=== PATIENT | female | born 1955 | race Caucasian/White ===

== ENCOUNTER 2024-07-22 06:44 | Emergency (ER) | payer MEDICARE, SELFPAY ==
[2024-07-22 06:49] VITALS: BP 152/98
[2024-07-22 07:15] VITALS: BMI 19.5
--- NOTE | 2024-07-22 07:26 | ED.GENMED ---
History of Present Illness
General
Chief Complaint: DVT/Possible Blood Clot
Time Seen by Provider: 07/22/24 07:08
History of Present Illness
History of Present Illness:
69 yo female with history of prior provoked PE, no longer on anticoagulants, presents to the emergency department for evaluation of redness and discomfort to the right medial knee beginning yesterday. Feels as though she may have by an insect while
in her basement. She is concerned due to prior history of DVT. Denies any leg swelling or fevers.
Review of Systems
Review of Systems
Allergies reviewed?: Yes
All Other Systems: ROS reviewed and negative except as documented in HPI and ROS
Phy Exam
Physical Exam
Physical Exam:
GEN: Well appearing, NAD, WDWN
HEENT: Oral mucosa moist, no scleral icterus
Cardiac: Regular rate
Lung: No respiratory distress, no tachypnea
MSK: No gross deformity or injuries. Palpable thready venous cord with surrounding erythema to the right medial knee correlating with saphenous vein, likely a phlebitis
Skin: Good color, no pallor or jaundice, no rashes
Neuro: AO x3, moves all extremities freely
Psych: Calm, cooperative
Course
Vital Signs
Initial and Last Documented VS:
Initial Vital Signs
Temp Pulse Resp BP Pulse Ox
98.3 F 105 18 152/98 100
07/22/24 06:49 07/22/24 06:49 07/22/24 06:49 07/22/24 06:49 07/22/24 06:49
Last Documented Vital Signs
Temp Pulse Resp BP Pulse Ox
98.3 F 105 18 152/98 100
07/22/24 06:49 07/22/24 06:49 07/22/24 06:49 07/22/24 06:49 07/22/24 06:49
MDM/Problems Addressed
MDM/Problems Addressed:
There is no lower extremity edema to suggest DVT. Certainly could be localized cellulitis over the palpable venous cords suggest that this is likely superficial phlebitis on ongoing leg trauma. Recommend full dose aspirin, antibiotics prescribed
should symptoms progress
*Critical Care Note
Total Time (30-74mins, 75-104mins- exclusive of procedures): Not Applicable
ED Attending Note
-
Portions of this chart may have been created with voice recognition software.� Occasional wrong word or��sound alike� substitutions may have occurred due to the inherent limitations of voice recognition software.
Discharge Plan
Departure
Patient Disposition: Home (Routine Discharge)
Date of Disposition: 07/22/24
Time of Disposition: :27
Patient with high blood pressure during this ER visit?: No
Discharge Problem:
Superficial thrombophlebitis of right leg
Instructions: Superficial vein phlebitis and thrombosis
Prescriptions:
New
cephalexin 500 mg capsule
500 mg PO Q8H 7 Days Qty: 21 0RF
Activity Restrictions/Additional Instructions:
325mg aspirin once daily for 10-14 days
Warm compresses 3 times daily
Antibiotics prescribed should redness increase and not follow a linear pattern along the vein in your leg
Interventions
Interventions:
*Risk Screen - Suicide Last Done: 07/22/24 07:16
*General Assessment Last Done: 07/22/24 07:16
*Neglect/Abuse Screening Last Done: 07/22/24 07:16
ED- Fall Risk Assessment Last Done: 07/22/24 07:49
*ED COVID-19 Vaccine History Last Done: 07/22/24 07:16
*Nursing Disposition Last Done: 07/22/24 07:49
ED- Cardiac Assessment Last Done: 07/22/24 07:16
ED- Pulmonary Assessment Last Done: 07/22/24 07:16
ED-Peripheral Vascular Assessment Last Done: 07/22/24 07:16
ED-Skin Assessment Last Done: 07/22/24 07:16
Discharge Date and Time
Discharge Date/Time: 07/22/24 07:51
Print Language: EQUATORIAL GUINEAN
== END 2024-07-22 07:51 | disposition home or self-care (01) ==
LOC: EMR 06:44
PROVIDERS: EMERGENCY PHYSICIAN Emergency Medicine
DX: I80.01 Phlebitis and thrombophlebitis of superficial vessels of right lower extremity (principal); M25.561 Pain in right knee; L53.9 Erythematous condition, unspecified; Z86.711 Personal history of pulmonary embolism; Z86.718 Personal history of other venous thrombosis and embolism
CPT/HCPCS: 99283

== ENCOUNTER → 2024-08-08 13:37 | Outpatient (REF) | payer MEDICARE, SELFPAY | LOC: RAD 13:37 | DX: Z86.718 Personal history of other venous thrombosis and embolism (principal); Z86.711 Personal history of pulmonary embolism; M79.604 Pain in right leg | CPT/HCPCS: 93971 ==

== ENCOUNTER 2024-08-10 15:41 | Emergency (ER) | payer MEDICARE, SELFPAY ==
[2024-08-10 15:47] VITALS: BP 143/94
--- NOTE | 2024-08-10 16:24 | ED.SKININJ ---
HPI-Injury
General
Chief Complaint: Bite
Source: patient
Exam Limitations: none
Time Seen by Provider: 08/10/24 16:11
History of Present Illness-Injury
Is this injury a work related problem?: No
Initial Injury comments:
See MDM
Past History
Past History
ED Past Medical History: Other (PE)
ED Past Surgical History:
Social History
Tobacco: Non-smoker
Alcohol: None
Phy Exam
Physical Exam
Physical Exam:
See MDM
Course
Orders/Labs/Results
Orders:
Orders
08/10/24 16:19
Tetanus/Diphth/Acelpertussis [Adacel] 0.5 ml IM .ONCE ONE
Vital Signs
Initial and Last Documented VS:
Initial Vital Signs
Temp Pulse Resp BP Pulse Ox
98.2 F 93 16 143/94 99
08/10/24 15:47 08/10/24 15:47 08/10/24 15:47 08/10/24 15:47 08/10/24 15:47
Last Documented Vital Signs
Temp Pulse Resp BP Pulse Ox
98.2 F 93 16 143/94 99
08/10/24 15:47 08/10/24 15:47 08/10/24 15:47 08/10/24 15:47 08/10/24 15:47
MDM/Problems Addressed
Differential Diagnosis Includes:
HPI and MDM Narrative:
69-year-old female presenting for evaluation of a dog bite. She was playing with her 8-week puppy and the sharp puppy tooth nicked her left lower lip. She is unsure about her last tetanus shot. On exam, there is a very superficial subcentimeter
laceration to left lower lip that does not involve the vermilion border. Based on this, I discussed that there is no real need to suture or glue. Patient agrees. Will give tetanus shot. Given the superficial nature on the face and the fact that
they already washed out, discussed low concern for infection
Physical exam
General: Well appearing and non-toxic
HEENT: protecting airway
Neck: appears supple
CV: No evidence of cyanosis
Resp: No accessory muscle use
Abd: Non-distended
Extremities: No deformities
Neuro: alert
Psych: Normal affect
Skin: Subcentimeter superficial laceration to left lower lip does not involve vermilion border
Problems Addressed including Acute and Chronic Conditions affecting care:
1. Lip laceration
Acuity: acute
Prognosis: stable
Details: Discussed healing on its own
Differential Diagnosis (but not limited to): Lip laceration, right
Drug therapy (if applicable): OTC meds, please see d/c instruction regarding Rx drugs
Amount and/or Complexity of Data Reviewed
Clinical info obtained from: Patient
External data reviewed: N/A
Labs I independently reviewed (but not limited to): N/A
Radiology: N/A
Pulse Ox: not hypoxic
EKG independently reviewed: N/A
Search Lead: N/A
Critical Care: N/A
Risk of Complication:
Social Determinants of health: Good social support
Discussed with other providers: N/A
Escalation of Care includes Admit/Obs: After being observed in the Emergency Department, pt stable for discharge.
Occasional wrong word or 'sound a like' substitutions may have occurred due to the inherent limitations of voice recognition software. Read the chart carefully and recognize, using context, where substitutions have occurred.
*Critical Care Note
Total Time (30-74mins, 75-104mins- exclusive of procedures): Not Applicable
ED Attending Note
-
Portions of this chart may have been created with voice recognition software.� Occasional wrong word or��sound alike� substitutions may have occurred due to the inherent limitations of voice recognition software.
Discharge Plan
Departure
Patient Disposition: Home (Routine Discharge)
Date of Disposition: 08/10/24
Time of Disposition: 16:24
Patient with high blood pressure during this ER visit?: Yes
Discharge Problem:
Dog bite
Instructions: Animal Bites (DC)
Prescriptions:
No Action
cephalexin 500 mg capsule
500 mg PO Q8H 7 Days Qty: 21 0RF
Referrals:
UNKNOWN - PT DOES,NOT KNOW [Family Provider] -
Activity Restrictions/Additional Instructions:
Please return for any worsening symptoms.
You may return at any time if you have further concerns.
Please follow up with your doctor at the first available appointment, preferably this week.
Thank you for choosing [facility].
Interventions
Interventions:
ED-Skin Assessment Last Done: 08/10/24 15:58
Discharge Date and Time
Print Language: ROMANIAN
[2024-08-10] MEDS: ADACEL 0.5 ML IM (16:28)
== END 2024-08-10 16:35 | disposition home or self-care (01) ==
LOC: EMR 15:41
PROVIDERS: EMERGENCY PHYSICIAN Student in an Organized Health Care Education/Training Program
DX: S01.511A Laceration without foreign body of lip, initial encounter (principal); W54.0XXA Bitten by dog, initial encounter; Z23 Encounter for immunization
CPT/HCPCS: 99282; 90471; 90715

== ENCOUNTER → 2024-08-14 06:47 | Outpatient (REF) | payer MEDICARE, SELFPAY ==
[2024-08-14 08:09] LABS: % Basophils 0.7 % (0-2); % Eosinophils 2.4 % (0-6); % Lymphocytes 35.6 % (20.5-51.1); % Monocytes 6.5 % (1.7-9.3); % Neutrophils 54.8 % (42.2-75.2); Absolute Eosinophils 0.1 10^3/uL (0-0.7); Absolute Lymphocytes 1.5 10^3/uL (1.2-3.4); Absolute Monocytes 0.3 10^3/uL (0.1-0.6); Absolute Neutrophils 2.3 10^3/uL (1.4-6.5); Hematocrit 42.6 % (37.0-47.0); Hemoglobin 14.3 g/dL (12.0-16.0); Mean Corp Hgb Conc. 33.6 g/dL (33.0-37.0); Mean Corpuscular Hgb 31.4 pg (27.0-31.0); Mean Corpuscular Volume 93.4 fL (81.0-99.0); Mean Platelet Volume 9.1 fL (7.4-10.4); Nucleated Red Blood Cells % 0 %; Platelet Count 409 10^3/uL (130-400); Red Blood Cell Count 4.56 10^6/uL (4.20-5.40); Red Cell Dist. Width 13.1 % (11.5-14.5); White Blood Cell Count 4.2 10^3/uL (4.8-10.8)
[2024-08-14 08:41] LABS: ALT (SGPT) 19 U/L (0-35); AST (SGOT) 29 U/L (14-36); Albumin 4.5 g/dl (3.5-5.0); Alkaline Phosphatase 50 U/L (38-126); Blood Urea Nitrogen 21 mg/dl (7-17); Calcium 10.1 mg/dl (8.4-10.2); Carbon Dioxide 31 mmol/L (22-30); Chloride 104 mmol/L (98-107); Glucose 104 mg/dl (70-99); HDL Cholesterol 51 mg/dl; LDL Cholesterol, Calculated 115 mg/dl; Potassium 5.3 mmol/L (3.5-5.1); Sodium 145 mmol/L (135-145); Total Bilirubin 0.5 mg/dl (0.2-1.3); Total Cholesterol 180 mg/dl (50-199); Total Protein 6.8 g/dl (6.3-8.2); Triglyceride 72 mg/dl (10-149); Very Low Density Lipoprotein 14 mg/dl (0-30); eGFR > 60.00
[2024-08-14 09:04] LABS: TSH Reflex To Free T4 1.53 uIU/ml (0.47-4.68)
== END ==
LOC: REG 06:47
DX: Z13.0 Encounter for screening for diseases of the blood and blood-forming organs and certain disorders involving the immune mechanism (principal); Z13.220 Encounter for screening for lipoid disorders; Z13.29 Encounter for screening for other suspected endocrine disorder; I80.01 Phlebitis and thrombophlebitis of superficial vessels of right lower extremity
CPT/HCPCS: 36415; 80053; 80061; 84443; 85025

== ENCOUNTER → 2024-08-16 09:36 | Outpatient (REF) | payer MEDICARE, SELFPAY ==
[2024-08-16 11:01] LABS: % Eosinophils 0.8 % (0-6); % Immature Granulocytes 0.3 % (0-0.5); % Lymphocytes 35.1 % (20.5-51.1); % Monocytes 7.5 % (1.7-9.3); % Neutrophils 55.3 % (42.2-75.2); Absolute Lymphocytes 1.4 10^3/uL (1.2-3.4); Absolute Monocytes 0.3 10^3/uL (0.1-0.6); Absolute Neutrophils 2.2 10^3/uL (1.4-6.5); Hematocrit 41.4 % (37.0-47.0); Hemoglobin 14.1 g/dL (12.0-16.0); Mean Corp Hgb Conc. 34.1 g/dL (33.0-37.0); Mean Corpuscular Hgb 32.3 pg (27.0-31.0); Mean Corpuscular Volume 94.7 fL (81.0-99.0); Mean Platelet Volume 9.2 fL (7.4-10.4); Nucleated Red Blood Cells % 0 %; Platelet Count 422 10^3/uL (130-400); Red Blood Cell Count 4.37 10^6/uL (4.20-5.40); Red Cell Dist. Width 12.8 % (11.5-14.5)
[2024-08-16 12:35] LABS: Glycohemoglobin (HgbA1c) 5.6 % (4.0-5.6)
[2024-08-16 12:39] LABS: Blood Urea Nitrogen 23 mg/dl (7-17); Calcium 9.8 mg/dl (8.4-10.2); Carbon Dioxide 29 mmol/L (22-30); Chloride 101 mmol/L (98-107); Glucose 90 mg/dl (70-99); Potassium 4.9 mmol/L (3.5-5.1); Sodium 142 mmol/L (135-145); eGFR > 60.00
== END ==
LOC: REG 09:36
DX: Z13.1 Encounter for screening for diabetes mellitus (principal); E87.5 Hyperkalemia; D72.818 Other decreased white blood cell count; Z00.00 Encounter for general adult medical examination without abnormal findings
CPT/HCPCS: 36415; 80048; 83036; 85025

== ENCOUNTER → 2024-09-26 14:02 | Outpatient (REF) | payer MEDICARE, SELFPAY | LOC: HWEVLT 14:02 | PROVIDERS: ATTENDING PHYSICIAN Radiology Diagnostic Radiology | DX: I83.891 Varicose veins of right lower extremity with other complications (principal); I83.893 Varicose veins of bilateral lower extremities with other complications | CPT/HCPCS: 93970 ==

== ENCOUNTER → 2024-10-25 11:24 | Outpatient (REF) | payer MEDICARE, SELFPAY | LOC: HWRCS 11:24 | PROVIDERS: ATTENDING PHYSICIAN Internal Medicine Cardiovascular Disease | DX: Z85.3 Personal history of malignant neoplasm of breast (principal); Z86.711 Personal history of pulmonary embolism; D75.839 Thrombocytosis, unspecified | CPT/HCPCS: 93306 ==

== ENCOUNTER → 2025-02-07 17:33 | Outpatient (REF) | payer MEDICARE, SELFPAY | LOC: MRI 17:33 | PROVIDERS: ATTENDING PHYSICIAN Nurse Practitioner Adult Health | DX: Z85.3 Personal history of malignant neoplasm of breast (principal); Z98.82 Breast implant status | CPT/HCPCS: 77047; C8937 ==